=== PATIENT | male | born 2000 | race African-American/Black ===

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

== ENCOUNTER 2023-11-17 11:13 | Emergency (ER) | payer SELFPAY ==
[~2023-11-17] VITALS: Ht 185.4 cm; Wt 77.1 kg
[~2023-11-17 11:13] MED LIST: IBUPROFEN600 MG PO
[2023-11-17] MEDS ORDERED: Bacitracin Zinc 14 GM TUBE T ONE (12:00)
[2023-11-17] MEDS ORDERED: Tdap Vaccine 0.5 ML SYR (Adult Vaccine) IM ONE (12:00)
[2023-11-17] MEDS ORDERED: CEPHALEXIN 500 MG CAP PO ONE (12:00)
[2023-11-17] MEDS ORDERED: CEPHALEXIN500 M1 PO (13:00)
[2023-11-17] MEDS ORDERED: NAPROSYN500 MG PO (13:00)
== END 2023-11-17 13:12 | disposition home or self-care (01) ==
LOC: ED 11:13
DX: S61.001A Unspecified open wound of right thumb without damage to nail, initial encounter (principal); W22.03XA Walked into furniture, initial encounter; Y93.89 Activity, other specified; Y92.89 Other specified places as the place of occurrence of the external cause; Y99.8 Other external cause status